=== PATIENT | male | born 1995 | race Caucasian/White ===

== ENCOUNTER 2018-05-02 21:06 | Emergency (ER) | payer BC ==
[2018-05-02] MEDS ORDERED: Diphtheria,Pertussis(Acell),Tetanus Vaccine 0.5 ML Syringe IM ONE (21:15)
[2018-05-02] MEDS ORDERED: Bacitracin Oint 1 GM U/D Packet TOP ONE (21:16)
[2018-05-02] MEDS ORDERED: Lidocaine 1% with EPINEPHrine 1:100,000 20 ML MDV INJECT ONE (21:16)
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
== END 2018-05-02 22:20 | disposition home or self-care (01) ==
LOC: MW.ED 21:06
DX: S01.111A Laceration without foreign body of right eyelid and periocular area, initial encounter (principal); S90.02XA Contusion of left ankle, initial encounter; S90.32XA Contusion of left foot, initial encounter; S80.812A Abrasion, left lower leg, initial encounter; S80.811A Abrasion, right lower leg, initial encounter; S80.212A Abrasion, left knee, initial encounter; Z23 Encounter for immunization; V29.9XXA Motorcycle rider (driver) (passenger) injured in unspecified traffic accident, initial encounter
CPT/HCPCS: 70150; 70150-26; 73610-26-LT; 73610-LT; 73620-26-LT; 73620-LT; 90471; 90715; 99284-25

== ENCOUNTER 2018-05-09 18:41 | Emergency (ER) | payer BC | END 2018-05-09 19:30 | disposition home or self-care (01) | LOC: MW.ED 18:41 | DX: Z53.21 Procedure and treatment not carried out due to patient leaving prior to being seen by health care provider (principal) ==